=== PATIENT | male | born 1995 | race Hispanic/Latino ===

== ENCOUNTER 2019-10-14 06:16 | Emergency (ER) | payer SELFPAY | END 2019-10-14 06:47 | disposition home or self-care (01) | LOC: ERS 06:16 | DX: F19.10 Other psychoactive substance abuse, uncomplicated (principal); I10 Essential (primary) hypertension; F41.9 Anxiety disorder, unspecified; F20.9 Schizophrenia, unspecified | CPT/HCPCS: 99284 ==